=== PATIENT | male | born 1965 | race Hispanic/Latino ===

== ENCOUNTER 2016-10-02 06:37 | Day surgery (SDC) | payer OTHER ==
[2016-09-28 08:32] VITALS: BMI 23.1
[2016-10-02 07:21] VITALS: O2SAT 100
[2016-10-02] MEDS ORDERED: Propofol 10 mg/ml Inj (20 ML) ONE ×3 (07:46→08:39)
[2016-10-02] MEDS ORDERED: Sodium Chloride 0.9% 1,000 ML IV SCH (08:00)
[2016-10-02 09:07] VITALS: RESP 16
[2016-10-02 09:47] VITALS: BP 146/94; TEMP 97.8
[2016-10-02 09:57] VITALS: PULSE 69
== END 2016-10-02 10:35 | disposition home or self-care (01) ==
LOC: ENDO 06:37
PROVIDERS: ATTEND Internal Medicine Gastroenterology
DX: Z12.11 Encounter for screening for malignant neoplasm of colon (principal); D12.3 Benign neoplasm of transverse colon; K63.5 Polyp of colon; K64.0 First degree hemorrhoids
CPT/HCPCS: 45380; 45385; 88305; J2704; J3010; J7040 ×2